=== PATIENT | female | born 1980 | race American Indian/Alaskan Native ===

== ENCOUNTER 2017-06-17 08:17 | Emergency (ER) | payer OTHER ==
[2017-06-17 08:26] VITALS: BP 125/85
--- NOTE | 2017-06-17 12:14 | Emergency Department Report ---
Entered by KINJAL JO, acting as scribe for CASE PALOMO PA. ED Rash HPI - HPI Chief Complaint: Skin Rash Stated Complaint: RASH UPPER LEFT CHEST AND BACK Time Seen by Provider: 06/17/17 09:12 Duration: 3 Days Location: Neck, Chest, Back Suspected Cause: Unknown Rash Symptoms: Yes Blistering, No Itching (painful rash), No Facial Swelling, No Tongue/Oral Swelling, No Breathing Difficulties, No Choking Sensation, No Wheezing/Dyspnea, No Peeling, No Fever, No Lightheaded, No Malaise, No Myalgias Severity: moderate Other History: 37 year old female with no significant PMHx presents to ED with c /o rash to upper left chest, neck, and back since 3 days ago. Patient states she first felt pain near her upper extremity and noticed she was breaking out. Patient describes pain as throbbing and tingling and rates pain a 7/10. Patient reports subjective fever and coughing but denies difficulties in swallowing, headache, nausea, vomiting, or chills. Patient states she had hx of chicken pox during childhood. NKDA. ED Review of Systems ROS: Stated complaint: RASH UPPER LEFT CHEST AND BACK Other details as noted in HPI Comment: All other systems reviewed and negative Constitutional: denies: chills, fever, weakness ENT: denies: throat pain, congestion Respiratory: denies: cough, shortness of breath, SOB with exertion, SOB at rest , stridor, wheezing Cardiovascular: denies: chest pain, palpitations, edema, syncope Gastrointestinal: denies: abdominal pain, nausea, vomiting, diarrhea Musculoskeletal: denies: back pain, joint swelling, arthralgia Skin: rash. denies: pruritus Neurological: denies: headache, weakness, paresthesias ED Past Medical Hx - Past Medical History Previous Medical History?: No Hx Hypertension: No Hx Congestive Heart Failure: No Hx Diabetes: No Hx Deep Vein Thrombosis: No Hx Renal Disease: No Hx Sickle Cell Disease: No Hx Seizures: No Hx Asthma: No Hx COPD: No Hx HIV: No - Surgical History Past Surgical History?: Yes Additional Surgical History: x2 - Family History Family history: hypertension - Social History Smoking Status: Current Every Day Smoker Substance Use Type: None Other Social History: Single - Medications Home Medications: Home Medications Medication Instructions Recorded Confirmed Last Taken Type Ferrous Sulfate [Feosol 325 MG tab] 325 mg PO BID #60 tablet 07/31/13 Unknown Rx HYDROcodone/APAP 5-325 [[place] 1 each PO Q6HR PRN #30 tablet 07/31/13 Unknown Rx 5/325 mg] Ibuprofen [Motrin] 600 mg PO Q6H PRN #30 tablet 07/31/13 Unknown Rx [id number]/Iron Fumarate/FA/Dss 1 each PO QDAY #30 tablet 07/31/13 Unknown Rx [ 19 Tablet] Permethrin 5% [Acticin 5% CREAM] 1 applicatio TP ONCE #60 gram 03/23/14 Unknown Rx hydrOXYzine HCL [Atarax] 25 mg PO Q6HR PRN #10 tablet 03/23/14 Unknown Rx Acetaminophen/Codeine [Tylenol 1 tab PO Q6H PRN #12 tab 06/17/17 Unknown Rx /Codeine # 3 tab] Acyclovir [Zovirax Tab] 800 mg PO Q12H #21 tab 06/17/17 Unknown Rx Rash Exam - Exam General: Vital signs noted. No distress. Alert and acting appropriately This is a 37-year-old female well-nourished well-developed in no acute distress.. Head: Normocephalic, atraumatic Neck: Supple, no C-spine tenderness, no tracheal deviation. Nontender to palpation. no adenopathy Mouth: Moist, no pharyngeal exudate or erythema. Uvula is midline and oral airway is patent HEENT: No Periorbital Edema, No Conjuctival Injection, No Chemosis, No Perioral Edema, No Tongue Edema (Tongue normal), No Uvular Edema, No Compromised Airway, No Drooling Lungs: Yes Good Air Exchange ( Non labor breathing, airway open and clear), No Wheezes, No Ronchi, No Stridor, No Cough, No Labored Respirations, No Retractions, No Use of Accessory Muscles, No Other Abnormal Lung Sounds Heart: Yes Regular (s1/s2 regular rhythm, no murmur), No Murmur Skin: Yes Tenderness ( pain before rash appears), Yes Erythema (vesicular rash and clusters to right lateral chest, AC joint area, apporx right arm, left posterior chest, and left scapula), No Urticarial Rash, No Maculopapular Rash, No Morbilliform rash, No Bulla(e), No Excoriations, No Weeping, No Edema, No Encrustations, No Other Other: Positive: Abdomen Normal, Neurologic Normal, Musculoskeletal Normal ED Course Vital Signs 06/17/17 08:23 Temperature 98.5 F Pulse Rate 82 Respiratory 20 Rate Blood Pressure 125/85 O2 Sat by Pulse 100 Oximetry - Reevaluation(s) Reevaluation #1: 06/17/17 11:59 stable throughout ED course ED Medical Decision Making - Medical Decision Making ED course: With physical findings for shingles rash. Describe rash as painful and tingly. She reports that she had pain at the sites prior to rash appearing. She is located only on the left and does not cross over the dermatome line. I discussed the patient diagnosis and treatment plan and she voiced understanding. Assessment/plan 1. Herpes zoster AKA shingles 2. Painful rash Patient discharged home with prescription for acyclovir and Motrin and instructed to practice good hand hygiene, stay away from people, children under 8 and elderly until rash dries up as these individuals immune system are low. She voiced was understanding.Does not have any medical problems and patient denies being immunocompromised. She said her last HIV test and was one year ago it was negative. Critical care attestation.: If time is entered above; I have spent that time in minutes in the direct care of this critically ill patient, excluding procedure time. ED Disposition Clinical Impression: Skin pain Shingles Qualifiers: Herpes zoster complications: without complications Qualified Code(s): B02.9 - Zoster without complications Disposition: DC-01 TO HOME OR SELFCARE Is pt being admited?: No Does the pt Need Aspirin: No Condition: Stable Instructions: Herpes Zoster (ED) Additional Instructions: keep affected area clean and dry Avoid interaction with elderly, children under 8 and individuals rash dries up. Take medication as prescribed Prescriptions: Acetaminophen/Codeine [Tylenol /Codeine # 3 tab] 1 tab PO Q6H PRN #12 tab PRN Reason: Pain Acyclovir [Zovirax Tab] 800 mg PO Q12H #21 tab Referrals: PRIMARY CARE, [Primary Care Provider] - 3-5 Days Forms: Work/School Release Form(ED) This documentation as recorded by the SANDRO padilla PEARL,accurately reflects the service I personally performed and the decisions made by ,CASE PALOMO PA.
== END 2017-06-17 12:44 | disposition home or self-care (01) ==
LOC: ED 08:17
DX: B02.9 Zoster without complications (principal); F17.210 Nicotine dependence, cigarettes, uncomplicated
CPT/HCPCS: 99282

== ENCOUNTER 2018-03-01 13:25 | Emergency (ER) | payer SELFPAY ==
[2018-03-01 13:34] VITALS: BP 136/76
--- NOTE | 2018-03-01 16:04 | Emergency Department Report ---
ED General Adult HPI - General Chief complaint: Urogenital-Female Stated complaint: RIGHT BREAST PAIN Time Seen by Provider: 03/01/18 15:55 Source: patient, family Mode of arrival: Ambulatory Limitations: No Limitations - History of Present Illness Initial comments: Patient here reports that she came to the emergency room because she's been having right breast pain for 4 years. She said her daughters for years old and she's been having the pain right after she had her daughter. Pain is 7 out of 10 comes and goes located to right breast. She reports that sometimes she has discharge from her right nipple. She said last night she became more A because the lump felt like he was a little bigger. Painful and sore to touch. Denies taking any medication. Denies any history of breast cancer. Last menstrual period was 02/02/2018 and lasted until 02/06 2018. Denies any vaginal discharge or bleeding. Denies any chest pain, heart disease any cough neck or back pain. She also reported that her right nipple at times will go inside and she has to pull it out. MD Complaint: right breast pain Onset/Timin -: year(s) Location: chest (right breast), right Radiation: non-radiation Severity scale (0 -10): 7 Quality: other (sore) Consistency: intermittent Improves with: rest Worsens with: movement, other (palpation) Associated Symptoms: other (right nipple discharge and nipple inversion intermittent.). denies: confusion, cough, diaphoresis, fever/chills, headaches , loss of appetite, malaise, nausea/vomiting, rash, seizure, shortness of breath , syncope, weakness Treatments Prior to Arrival: none - Related Data Previous Rx's Medication Instructions Recorded Last Taken Type Ferrous Sulfate [Feosol 325 MG tab] 325 mg PO BID #60 tablet 07/31/13 Unknown Rx HYDROcodone/APAP 5-325 [[place] 1 each PO Q6HR PRN #30 tablet 07/31/13 Unknown Rx 5/325 mg] Ibuprofen [Motrin] 600 mg PO Q6H PRN #30 tablet 07/31/13 Unknown Rx [id number]/Iron Fum/Folic/Docusate 1 each PO QDAY #30 tablet 07/31/13 Unknown Rx [ 19 Tablet] Permethrin 5% [Acticin 5% CREAM] 1 applicatio TP ONCE #60 gram 03/23/14 Unknown Rx hydrOXYzine HCL [Atarax] 25 mg PO Q6HR PRN #10 tablet 03/23/14 Unknown Rx Acetaminophen/Codeine [Tylenol 1 tab PO Q6H PRN #12 tab 06/17/17 Unknown Rx /Codeine # 3 tab] Acyclovir [Zovirax Tab] 800 mg PO Q12H #21 tab 06/17/17 Unknown Rx Ibuprofen [Motrin] 600 mg PO Q8H PRN #12 tablet 03/01/18 Unknown Rx Allergies Allergy/AdvReac Type Severity Reaction Status Date / Time No Known Allergies Allergy Verified 07/31/13 10:24 ED Review of Systems ROS: Stated complaint: RIGHT BREAST PAIN Other details as noted in HPI Comment: All other systems reviewed and negative Constitutional: no symptoms reported Eyes: denies: eye pain, eye discharge ENT: denies: ear pain, throat pain, hearing loss, epistaxis, congestion Respiratory: no symptoms reported Cardiovascular: other (right breast pain for sit movement and palpation, occasional right nipple discharge with nipple inversion.). denies: chest pain, palpitations, dyspnea on exertion, orthopnea, edema, syncope, paroxysmal nocturnal dyspnea Gastrointestinal: denies: abdominal pain, nausea, vomiting, diarrhea, constipation, hematemesis, melena, hematochezia Genitourinary: denies: urgency, dysuria, frequency, discharge, abnormal menses, dyspareunia Musculoskeletal: denies: back pain, arthralgia, myalgia Skin: denies: rash Neurological: denies: headache, weakness, numbness, paresthesias, confusion, abnormal gait, vertigo ED Past Medical Hx - Past Medical History Previous Medical History?: Yes Hx Hypertension: No Hx Congestive Heart Failure: No Hx Diabetes: No Hx Deep Vein Thrombosis: No Hx Renal Disease: No Hx Sickle Cell Disease: No Hx Seizures: No Hx Asthma: No Hx COPD: No Hx HIV: No - Surgical History Past Surgical History?: Yes Additional Surgical History: x2 - Family History Family history: hypertension - Social History Smoking Status: Current Every Day Smoker Substance Use Type: None - Medications Home Medications: Home Medications Medication Instructions Recorded Confirmed Last Taken Type Ferrous Sulfate [Feosol 325 MG tab] 325 mg PO BID #60 tablet 07/31/13 Unknown Rx HYDROcodone/APAP 5-325 [[place] 1 each PO Q6HR PRN #30 tablet 07/31/13 Unknown Rx 5/325 mg] Ibuprofen [Motrin] 600 mg PO Q6H PRN #30 tablet 07/31/13 Unknown Rx [id number]/Iron Fum/Folic/Docusate 1 each PO QDAY #30 tablet 07/31/13 Unknown Rx [ 19 Tablet] Permethrin 5% [Acticin 5% CREAM] 1 applicatio TP ONCE #60 gram 03/23/14 Unknown Rx hydrOXYzine HCL [Atarax] 25 mg PO Q6HR PRN #10 tablet 03/23/14 Unknown Rx Acetaminophen/Codeine [Tylenol 1 tab PO Q6H PRN #12 tab 06/17/17 Unknown Rx /Codeine # 3 tab] Acyclovir [Zovirax Tab] 800 mg PO Q12H #21 tab 06/17/17 Unknown Rx Ibuprofen [Motrin] 600 mg PO Q8H PRN #12 tablet 03/01/18 Unknown Rx ED Physical Exam - General Limitations: No Limitations General appearance: alert, in no apparent distress - Head Head exam: Present: atraumatic, normocephalic, normal inspection - Eye Eye exam: Present: normal appearance, PERRL, EOMI Pupils: Present: normal accommodation - ENT ENT exam: Present: normal exam, normal orophraynx, mucous membranes moist, TM's normal bilaterally, normal external ear exam - Neck Neck exam: Present: normal inspection, full ROM, other (no C-spine tenderness). Absent: tenderness, lymphadenopathy - Respiratory Respiratory exam: Present: normal lung sounds bilaterally, chest wall tenderness (right breast anterior. Please refer to other exam information for detail on the right breast exam.). Absent: respiratory distress, wheezes, rales , rhonchi, stridor, accessory muscle use, decreased breath sounds, prolonged expiratory - Cardiovascular Cardiovascular Exam: Present: regular rate, normal rhythm, normal heart sounds - GI/Abdominal GI/Abdominal exam: Present: soft, normal bowel sounds. Absent: distended, tenderness, guarding, rebound, rigid, organomegaly, mass, bruit, pulsatile mass , hernia - Extremities Exam Extremities exam: Present: normal inspection, full ROM, normal capillary refill , other (no clubbing, cyanosis or edema. +2 pulses to all extremities and no neurovascular compromise). Absent: tenderness, pedal edema, joint swelling, calf tenderness - Back Exam Back exam: Present: normal inspection, full ROM, other (ambulates without any difficulties). Absent: tenderness, CVA tenderness (R), CVA tenderness (L), muscle spasm, paraspinal tenderness, vertebral tenderness, rash noted - Neurological Exam Neurological exam: Present: alert, oriented X3, normal gait - Psychiatric Psychiatric exam: Present: normal affect, normal mood - Skin Skin exam: Present: warm, dry, intact, normal color. Absent: rash - Other Other exam information: Breast EXAM: Jude Breast exam breast is symmetrical and sitting position. No bulging noted. Skin has no dimpling or retraction, no edema, ulceration or erythema. No eczematous area on breasts. Nipples are symmetric without retraction. No nipple discharge or crusting. Palpated quarter size nodule to the RT left upper quadrant breast that is fixed, irregular borders, tender to palpate without any erythema. Chest wall without any crepitus or contusion. No erythema noted. Positive adenopathy rt axillary but no adenopathy to other sites to include supraclavicular, infraclavicular . Breast exam performed with patient sitting, laying supine, standing in with arms flexed on hips. Bilateral breasts breasts are pendulous. ED Course Vital Signs 03/01/18 13:30 Temperature 99 F Pulse Rate 82 Respiratory 16 Rate Blood Pressure 136/76 O2 Sat by Pulse 100 Oximetry - Reevaluation(s) Reevaluation #1: 03/01/18 17:18 Patient given Motrin 800 mg when necessary emergency room. ED Medical Decision Making - EKG Data -: EKG Interpreted by Me (attending physician) EKG shows normal: sinus rhythm Rate: normal (sinus rhythm at 80 bpm) - EKG Data Interpretation: normal EKG - Medical Decision Making ED course: Patient here reports she's been having breast pain for over 4 years. This is her first examination for breast pain. Patient found to have single solitary immobile, tender to palpate mass to right breast located at left upper quadrant. There is also positive right axillary lymph node palpation. This is suspicious for malignancy and patient will need mammogram. I discussed the patient that she needs to follow-up with [facility] or family practice at this outside [facility] and let them know that she was in the emergency room and she had mass in her right breast and was recommended to have mammogram. She will need to have full physical exam for referral for outpatient mammogram. Breast exam was done in both breasts with abnormality found in right breast. Patient also did self breast exam at home and found abnormality. Patient given Motrin 800 mg emergency room and discharged home with prescription for Motrin. She voiced understanding the discharge diagnosis, treatment plan and need to follow up to have a mammogram to rule out breast cancer. Patient is also smoker and I counseled her effects breast surgery effects of smoking on breast cancer. Critical care attestation.: If time is entered above; I have spent that time in minutes in the direct care of this critically ill patient, excluding procedure time. ED Disposition Clinical Impression: Breast mass, right, Breast pain, left, Nicotine abuse Disposition: DC-01 TO HOME OR SELFCARE Is pt being admited?: No Does the pt Need Aspirin: No Condition: Stable Instructions: Breast Self-exam (ED), Mammogram (ED), Breast Mass (ED), How to Stop Smoking (ED) Additional Instructions: Please stop smoking as this can cause breast cancer He will need to follow-up with [facility] and/or primary care physician at [facility] as discussed. Please refer to paper were given on phone number and address. Call on 03/03/2018 to schedule an appointment and let them know that you were seen in the emergency room and mammogram was recommended for abnormality in your right breast. You will definitely need to have a mammogram to check for breast cancer. You have been having the symptoms for 4 years and this is a prolonged time so time is soft and sensed and you'll need to see [facility] or primary care within the next 2-3 days to have mammogram scheduled as if you don't this will get worse if you have cancer and you could eventually end up . Take Motrin as prescribed. Prescriptions: Ibuprofen [Motrin] 600 mg PO Q8H PRN #12 tablet PRN Reason: Pain Referrals: [facility] [Outside] - 03/03/18 you will need, outpatient mammogram [Other] - JANEL (Primary care or [facility] at [facility] will refer you for outpatient mammogram after the examination you.)
--- NOTE | 2018-03-01 16:05 | Emergency Department Report ---
Blank Doc - Documentation Documentation: MSE NOTE pt has r nipple pain and fluctuance. pt states no cc of cp or sob or ruq pain ekg= nsr at 80, no stemi, normal axis and intervals, no [id number] pattern Pt has no cw tenderess or abd tenderness\ pt has non tender abdomen normal gait and speech w/o neglect, w/o weakness and w/o asymetry Pt screened, sent to providers for exam and work up
[2018-03-01] MEDS ORDERED: MOTRIN PO ONE (17:16)
== END 2018-03-01 17:48 | disposition home or self-care (01) ==
LOC: ED 13:25
DX: N63.0 Unspecified lump in unspecified breast (principal); F10.10 Alcohol abuse, uncomplicated; F17.200 Nicotine dependence, unspecified, uncomplicated
CPT/HCPCS: 93005; 93010; 99282

== ENCOUNTER 2019-09-08 15:05 | Inpatient (IN) | payer MEDICAID ==
[2019-09-08 16:07] LABS: Basophils # (Auto) 0.1 K/mm3 (0.0-0.1); Basophils % (Auto) 1.3 % (0.0-1.8); Eosinophils % (Auto) 0.4 % (0.0-4.3); Hematocrit 38.9 % (30.3-42.9); Hemoglobin 12.7 gm/dl (10.1-14.3); Lymphocytes # (Auto) 1.1 K/mm3 (1.2-5.4); Lymphocytes % (Auto) 24.1 % (13.4-35.0); Mean Corpuscular HGB Conc 33 % (30-34); Mean Corpuscular Volume 101 fl (79-97); Monocytes # (Auto) 0.5 K/mm3 (0.0-0.8); Monocytes % (Auto) 10.1 % (0.0-7.3); Platelet Count 286 K/mm3 (140-440); Red Blood Count 3.86 M/mm3 (3.65-5.03); Red Cell Distribution Width 14.9 % (13.2-15.2)
--- NOTE | 2019-09-08 16:08 | Emergency Department Report ---
HPI - General Chief Complaint: Neuro Symptoms/Deficit Time Seen by Provider: 09/08/19 15:34 - HPI HPI: Room 17 The patient is a 39-year-old female presenting with chief complaint of left- sided weakness. Patient states approximately one hour prior to arrival she had the onset of left upper extremity and left lower extremity numbness and weakness. The patient states her mouth began twisting and she cannot talk or swallow. The patient states the symptoms lasted approximately 20 minutes and then resolved. Patient denies history of headache. Patient denies previous episodes of same. Location: [See above] Duration: [See above] Quality: [See above] Severity: [See above] Timing: [See above] Context: [See above] Modifying factors: [See above] Associated signs and symptoms: [see above] ED Past Medical Hx - Surgical History Additional Surgical History: x2 - Family History Family history: no significant - Social History Smoking Status: Former Smoker (none 20 years) Substance Use Type: None (denies illicit drug use) - Medications Home Medications: Home Medications Medication Instructions Recorded Confirmed Last Taken Type Ferrous Sulfate [Feosol 325 MG tab] 325 mg PO BID #60 tablet 07/31/13 Unknown Rx HYDROcodone/APAP 5-325 [[place] 1 each PO Q6HR PRN #30 tablet 07/31/13 Unknown Rx 5/325 mg] Ibuprofen [Motrin] 600 mg PO Q6H PRN #30 tablet 07/31/13 Unknown Rx [id number]/Iron Fum/Folic/Docusate 1 each PO QDAY #30 tablet 07/31/13 Unknown Rx [ 19 Tablet] Permethrin 5% [Acticin 5% CREAM] 1 applicatio TP ONCE #60 gram 03/23/14 Unknown Rx hydrOXYzine HCL [Atarax] 25 mg PO Q6HR PRN #10 tablet 03/23/14 Unknown Rx Acetaminophen/Codeine [Tylenol 1 tab PO Q6H PRN #12 tab 06/17/17 Unknown Rx /Codeine # 3 tab] Acyclovir [Zovirax Tab] 800 mg PO Q12H #21 tab 06/17/17 Unknown Rx Ibuprofen [Motrin] 600 mg PO Q8H PRN #12 tablet 03/01/18 Unknown Rx ED Review of Systems ROS: Stated complaint: POSS STROKE Other details as noted in HPI Constitutional: no symptoms reported Eyes: denies: eye pain ENT: denies: throat pain Respiratory: no symptoms reported Cardiovascular: denies: chest pain Endocrine: no symptoms reported Gastrointestinal: denies: abdominal pain Genitourinary: denies: dysuria Musculoskeletal: denies: back pain Neurological: weakness, numbness. denies: headache Physical Exam - Physical Exam Vital Signs: Vital Signs 09/08/19 15:28 Temperature 98.4 F Pulse Rate 93 H Respiratory 18 Rate Blood Pressure 138/80 O2 Sat by Pulse 100 Oximetry Physical Exam: GENERAL: The patient is well-developed well-nourished female lying on stretcher not appearing to be in acute distress. [] HEENT: Normocephalic. Atraumatic. Extraocular motions are intact. Patient has moist mucous membranes. NECK: Supple. Trachea midline CHEST/LUNGS: Clear to auscultation. There is no respiratory distress noted. HEART/CARDIOVASCULAR: Regular. There is no tachycardia. There is no gallop rub or murmur. ABDOMEN: Abdomen is soft, nontender. Patient has normal bowel sounds. There is no abdominal distention. SKIN: There is no rash. There is no edema. There is no diaphoresis. NEURO: The patient is awake, alert, and oriented. The patient is cooperative. The patient has no focal neurologic deficits. The patient has normal speech. Cranial nerves II through XII grossly intact, no drift. Patient able to hold either leg at 30 for 5 seconds count without drifting to the bed. Normal sensation bilaterally throughout NIHSS=0 MUSCULOSKELETAL:There is no evidence of acute injury. ED Course Vital Signs 09/08/19 15:28 Temperature 98.4 F Pulse Rate 93 H Respiratory 18 Rate Blood Pressure 138/80 O2 Sat by Pulse 100 Oximetry ED Medical Decision Making - Lab Data Result diagrams: 09/08/19 15:53 09/08/19 15:53 Laboratory Tests 09/08/19 09/08/19 09/08/19 15:53 15:53 15:53 WBC 4.5 RBC 3.86 Hgb 12.7 Hct 38.9 MCV 101 H MCH 33 H MCHC 33 RDW 14.9 Plt Count 286 Lymph % (Auto) 24.1 [place] % (Auto) 10.1 H Eos % (Auto) 0.4 Baso % (Auto) 1.3 Lymph # 1.1 L [place] # 0.5 Eos # 0.0 Baso # 0.1 Seg Neutrophils % 64.1 Seg Neutrophils # 2.9 PT 14.2 INR 1.11 APTT 31.3 Thrombin Time 16.6 Sodium 136 L Potassium 3.6 Chloride 102.9 Carbon Dioxide 23 Anion Gap 14 BUN 5 L Creatinine 0.7 Estimated GFR > 60 BUN/Creatinine Ratio 7 Glucose 103 H Calcium 9.4 Total Creatine Kinase 148 H CK-MB (CK-2) 1.2 CK-MB (CK-2) Rel Index 0.8 Troponin T < 0.010 HCG, Qual 09/08/19 15:53 WBC RBC Hgb Hct MCV MCH MCHC RDW Plt Count Lymph % (Auto) [place] % (Auto) Eos % (Auto) Baso % (Auto) Lymph # [place] # Eos # Baso # Seg Neutrophils % Seg Neutrophils # PT INR APTT Thrombin Time Sodium Potassium Chloride Carbon Dioxide Anion Gap BUN Creatinine Estimated GFR BUN/Creatinine Ratio Glucose Calcium Total Creatine Kinase CK-MB (CK-2) CK-MB (CK-2) Rel Index Troponin T HCG, Qual Negative - EKG Data -: EKG Interpreted by Mi EKG shows normal: sinus rhythm Rate: normal - EKG Data When compared to previous EKG there are: previous EKG unavailable Interpretation: normal EKG - Radiology Data Radiology results: report reviewed (CT head), image reviewed (CT head) [place] [id number] Cat Scan Report Signed Patient: JAZMIN BERUMEN MR# : [id number] : 1980 Acct:[id number] Age/Sex: 39 / F ADM Date: 09/08/19 Loc: ED Attend ing Dr: Ordering Physician: MARGO POLK MD Date of Service: 09/08/19 Procedure(s): CT head/brain wo con Accession Number(s): [id number] cc: MARGO POLK MD CT BRAIN: 09/08/2019 INDICATION / CLINICAL INFORMATION: transient left-sided weakness and dysarthria. COMPARISON: None available. FINDINGS: BRAIN/I NTRACRANIAL STRUCTURES: Unenhanced CT images of the brain demonstrate no evidence of acute intracranial abnormality. Ventricles and sulci are normal in size and shape for a patient of this age. There is no evidence of acute ischemic injury, hemorrhage, or mass. There are no abnormal extra-axial fluid collections. EXTRACRANIAL STRUCTURES: Unremarkable. IMPRESSION: No significant abnormality. All CT scans at this location are performed using dose reduction to ALARA by means of automated exposure control. Signer Name: Dong Trotter MD Signed: 09/08/2019 5:52 PM Workstation Name: [id number] Transcribed By: JOAN Dictated By: Dong Trotter MD Electronically Authenticated By: Dong Trotter MD Signed Date/Time: 09/08/191751 DD/ 50 TD/TT: - Differential Diagnosis TIA, ICH, intracranial mass, CVA Critical care attestation.: If time is entered above; I have spent that time in minutes in the direct care of this critically ill patient, excluding procedure time. ED Disposition Clinical Impression: TIA (transient ischemic attack) Disposition: DC-09 OP ADMIT IP TO THIS HOSP Is pt being admited?: Yes Does the pt Need Aspirin: Yes Condition: Fair Time of Disposition: 18:10 (hospitalist paged (Dr Block))
[2019-09-08 16:31] LABS: Creatine Kinase MB 1.2 ng/mL (0.0-4.0)
[2019-09-08 16:32] LABS: BUN/Creatinine Ratio 7; Blood Urea Nitrogen 5 mg/dL (7-17); Calcium 9.4 mg/dL (8.4-10.2); Hemolysis Index 11
[2019-09-08 17:23] LABS: Partial Thromboplastin Time 31.3 Sec. (24.2-36.6)
[2019-09-08 17:27] LABS: INR 1.11 (0.87-1.13)
[2019-09-08 17:42] LABS: Thrombin Time 16.6 Sec. (15.1-19.6)
--- NOTE | 2019-09-08 17:57 | Cat Scan Report ---
CT BRAIN: 09/08/2019 INDICATION / CLINICAL INFORMATION: transient left-sided weakness and dysarthria. COMPARISON: None available. FINDINGS: BRAIN/INTRACRANIAL STRUCTURES: Unenhanced CT images of the brain demonstrate no evidence of acute int racranial abnormality. Ventricles and sulci are normal in size and shape for a patient of this age. There is no evidence of acute ischemic injury, hemorrhage, or mass. There are no abnormal extra-axial fluid collections. EXTRACRANIAL STRUCTURES: Unremarkable. IMPRESSION: No significant abnormality. All CT scans at this location are performed using dose reduction to ALARA by means of automated expos ure control. Signer Name: Dong Trotter MD Signed: 09/08/2019 5:52 PM Workstation Name: [id number]
[2019-09-08] MEDS ORDERED: ASPIRIN 325 MG TAB PO ONE (18:11)
[2019-09-08] MEDS ORDERED: ASPIRIN 325 MG TAB ONE (19:19)
--- NOTE | 2019-09-08 19:32 | History and Physical Report ---
History of Present Illness Date of examination: 09/08/19 Date of admission: 09/08/19 18:27 Chief complaint: L side numbness and L arm weakness for 20 minutes History of present illness: 39-year-old female presenting with chief complaint of left-sided weakness. Patient states approximately one hour prior to arrival she had the onset of left upper extremity and left lower extremity numbness and weakness. The patient states her mouth began twisting and she cannot talk or swallow. The patient states the symptoms lasted approximately 20 minutes and then resolved. Patient denies history of headache. Patient denies previous episodes of same. Past Medical History Anemia Surgical History Additional Surgical History: x2 Family History Family history: no significant Social History Smoking Status: Former Smoker (none 20 years) Substance Use Type: None (denies illicit drug use) - Medications Home Medications: Home Medications Medication Instructions Recorded Confirmed Last Taken Type Ferrous Sulfate [Feosol 325 MG tab] 325 mg PO BID #60 tablet 07/31/13 Unknown Rx HYDROcodone/APAP 5-325 [[place] 1 each PO Q6HR PRN #30 tablet 07/31/13 Unknown Rx 5/325 mg] Ibuprofen [Motrin] 600 mg PO Q6H PRN #30 tablet 07/31/13 Unknown Rx [id number]/Iron Fum/Folic/Docusate 1 each PO QDAY #30 tablet 07/31/13 Unknown Rx [ 19 Tablet] Permethrin 5% [Acticin 5% CREAM] 1 applicatio TP ONCE #60 gram 03/23/14 Unknown Rx hydrOXYzine HCL [Atarax] 25 mg PO Q6HR PRN #10 tablet 03/23/14 Unknown Rx Acetaminophen/Codeine [Tylenol 1 tab PO Q6H PRN #12 tab 06/17/17 Unknown Rx /Codeine # 3 tab] Acyclovir [Zovirax Tab] 800 mg PO Q12H #21 tab 06/17/17 Unknown Rx Ibuprofen [Motrin] 600 mg PO Q8H PRN #12 tablet 03/01/18 Unknown Rx Review of Systems ROS: Stated complaint: POSS STROKE Other details as noted in HPI Constitutional: no symptoms reported Eyes: denies: eye pain ENT: denies: throat pain Respiratory: no symptoms reported Cardiovascular: denies: chest pain Endocrine: no symptoms reported Gastrointestinal: denies: abdominal pain Genitourinary: denies: dysuria Musculoskeletal: denies: back pain Neurological: weakness, numbness. denies: headache Medications and Allergies Allergies Allergy/AdvReac Type Severity Reaction Status Date / Time No Known Allergies Allergy Verified 07/31/13 10:24 Home Medications Medication Instructions Recorded Confirmed Last Taken Type No Known Home Medications [No 09/08/19 09/08/19 Unknown History Reported Home Medications] Exam - Constitutional Vitals: Temp Pulse Resp BP Pulse Ox 98.3 F 94 H 13 152/83 100 09/08/19 18:21 09/08/19 18:21 09/08/19 18:21 09/08/19 18:21 09/08/19 15:28 General appearance: Present: no acute distress, well-nourished - EENT Eyes: Present: PERRL ENT: hearing intact, clear oral mucosa - Neck Neck: Present: supple, normal ROM - Respiratory Respiratory effort: normal Respiratory: bilateral: CTA - Cardiovascular Heart rate: 78 Rhythm: regular Heart Sounds: Present: S1 & S2. Absent: rub, click - Extremities Extremities: no ischemia, pulses symmetrical, No edema Peripheral Pulses: within normal limits - Abdominal General gastrointestinal: Present: soft, non-tender, non-distended, normal bowel sounds Female genitourinary: Present: normal - Rectal Rectal Exam: deferred - Integumentary Integumentary: Present: clear, warm, dry - Musculoskeletal Musculoskeletal: gait normal, strength equal bilaterally - Psychiatric Psychiatric: appropriate mood/affect, intact judgment & insight - Neurologic Neurologic: CNII-XII intact, moves all extremities - Allied Health Allied health notes reviewed: nursing, case management Results - Labs CBC & Chem 7: 09/08/19 15:53 09/08/19 15:53 Labs: Laboratory Last Values WBC 4.5 K/mm3 (4.5-11.0) 09/08/19 15:53 RBC 3.86 M/mm3 (3.65-5.03) 09/08/19 15:53 Hgb 12.7 gm/dl (10.1-14.3) 09/08/19 15:53 Hct 38.9 % (30.3-42.9) 09/08/19 15:53 MCV 101 fl (79-97) H 09/08/19 15:53 MCH 33 pg (28-32) H 09/08/19 15:53 MCHC 33 % (30-34) 09/08/19 15:53 RDW 14.9 % (13.2-15.2) 09/08/19 15:53 Plt Count 286 K/mm3 (140-440) 09/08/19 15:53 Lymph % (Auto) 24.1 % (13.4-35.0) 09/08/19 15:53 [place] % (Auto) 10.1 % (0.0-7.3) H 09/08/19 15:53 Eos % (Auto) 0.4 % (0.0-4.3) 09/08/19 15:53 Baso % (Auto) 1.3 % (0.0-1.8) 09/08/19 15:53 Lymph # 1.1 K/mm3 (1.2-5.4) L 09/08/19 15:53 [place] # 0.5 K/mm3 (0.0-0.8) 09/08/19 15:53 Eos # 0.0 K/mm3 (0.0-0.4) 09/08/19 15:53 Baso # 0.1 K/mm3 (0.0-0.1) 09/08/19 15:53 Seg Neutrophils % 64.1 % (40.0-70.0) 09/08/19 15:53 Seg Neutrophils # 2.9 K/mm3 (1.8-7.7) 09/08/19 15:53 PT 14.2 Sec. (12.2-14.9) 09/08/19 15:53 INR 1.11 (0.87-1.13) 09/08/19 15:53 APTT 31.3 Sec. (24.2-36.6) 09/08/19 15:53 Thrombin Time 16.6 Sec. (15.1-19.6) 09/08/19 15:53 Sodium 136 mmol/L (137-145) L 09/08/19 15:53 Potassium 3.6 mmol/L (3.6-5.0) 09/08/19 15:53 Chloride 102.9 mmol/L (98-107) 09/08/19 15:53 Carbon Dioxide 23 mmol/L (22-30) 09/08/19 15:53 Anion Gap 14 mmol/L 09/08/19 15:53 BUN 5 mg/dL (7-17) L 09/08/19 15:53 Creatinine 0.7 mg/dL (0.7-1.2) 09/08/19 15:53 Estimated GFR > 60 ml/min 09/08/19 15:53 BUN/Creatinine Ratio 7 % 09/08/19 15:53 Glucose 103 mg/dL (65-100) H 09/08/19 15:53 Calcium 9.4 mg/dL (8.4-10.2) 09/08/19 15:53 Total Creatine Kinase 148 units/L (30-135) H 09/08/19 15:53 CK-MB (CK-2) 1.2 ng/mL (0.0-4.0) 09/08/19 15:53 CK-MB (CK-2) Rel Index 0.8 (0-4) 09/08/19 15:53 Troponin T < 0.010 ng/mL (0.00-0.029) 09/08/19 15:53 HCG, Qual Negative (Negative) 09/08/19 15:53 - Imaging and Cardiology EKG: report reviewed (NSR No acute ST T WAVE Changes) CT Scan - head: report reviewed (NAF) Assessment and Plan Advance Directives: Yes (Full code) VTE prophylaxis?: Chemical Plan of care discussed with patient/family: Yes - Patient Problems (1) TIA (transient ischemic attack) Current Visit: Yes Status: Acute Plan to address problem: TIA w/u MRI Brain and CDS ordered ECHO ordered NEURO consult (2) DVT prophylaxis Current Visit: Yes Status: Acute Plan to address problem: On Lovenox and GI prophylaxis
[2019-09-09] MEDS ORDERED: HYDROmorphone 1 MG/1 ML INJ IV PRN (07:40)
[2019-09-09] MEDS ORDERED: ACETAMINOPHEN 325 MG TAB PO PRN (07:40)
[2019-09-09] MEDS ORDERED: oxyCODONE /ACETAMINOPHEN 5-325MG TAB PO PRN (07:40)
[2019-09-09] MEDS ORDERED: ONDANSETRON 4 MG/2 ML INJ IV PRN (07:40)
[2019-09-09] MEDS ORDERED: SODIUM CHLORIDE 0.9% 1000 ML 1,000 ML IV SCH (08:00)
[2019-09-09 08:26] LABS: BUN/Creatinine Ratio 7; Blood Urea Nitrogen 4 mg/dL (7-17); Calcium 8.8 mg/dL (8.4-10.2); Hemolysis Index 1
[2019-09-09 08:35] LABS: Basophils % (Auto) 0.9 % (0.0-1.8); Eosinophils % (Auto) 0.5 % (0.0-4.3); Hematocrit 37.4 % (30.3-42.9); Hemoglobin 12.3 gm/dl (10.1-14.3); Lymphocytes # (Auto) 1.3 K/mm3 (1.2-5.4); Lymphocytes % (Auto) 32.4 % (13.4-35.0); Mean Corpuscular HGB Conc 33 % (30-34); Mean Corpuscular Volume 99 fl (79-97); Monocytes # (Auto) 0.4 K/mm3 (0.0-0.8); Monocytes % (Auto) 9.3 % (0.0-7.3); Platelet Count 292 K/mm3 (140-440); Red Blood Count 3.78 M/mm3 (3.65-5.03); Red Cell Distribution Width 14.6 % (13.2-15.2)
[2019-09-09] MEDS: FAMOTIDINE 20 MG TAB PO SCH ×2 (10:00→21:29)
--- NOTE | 2019-09-09 13:04 | Vascular Lab Report ---
"DUPLEX DOPPLER ULTRASOUND CAROTID, BILATERAL INDICATION: tia. FINDINGS: RIGHT CAROTID: No significant atherosclerotic plaque. Right CCA velocity: 134 cm/sec. Right ICA peak systolic velocity: 106 cm/sec. ICA/CCA PSV Ratio: 1.0. Right Vertebral Artery: Antegrade flow. LEFT CAROTID: No significant atherosclerotic plaque. Left CCA velocity: 131 cm/sec. Left ICA peak systolic velocity: 116 cm/sec. ICA/CCA PSV Ratio: 1.1. Left Vertebral Artery: Antegrade flow. IMPRESSION: 1. Right Internal Carotid Artery: Less than 50% diameter stenosis. 2. Left Internal Carotid Artery: Less than 50% diameter stenosis. Velocity criteria are extrapolated from diameter data as defined by the Society of Radiologists in Ul trasound Consensus Conference, Radiology 2003; 229;340-346. Degree of Stenosis (%) || ICA PSV (cm/sec) || Plaque estimate (%) || ICA/CCA PSV Ratio Normal <125 None <2.0 <50 <125 <50 <2.0 50-69 125-230 50 2.0-4.0 70 but less than 100 >230 50 >4.0 Near occlusion High, low, or none visible variable Total occlusion None visible; no lumen N/A Signer Name: Cale Turpin MD Signed: 09/09/2019 1:00 PM Workstation Name: [email or web address]"
--- NOTE | 2019-09-09 13:31 | Magnetic Resonance Report ---
MRI BRAIN WITHOUT CONTRAST INDICATION / CLINICAL INFORMATION: L arm numbness. Stroke. Slurred speech. TECHNIQUE: Multisequence, multiplanar images were obtained. COMPARISON: None available. FINDINGS: CEREBRAL and CEREBELLAR HEMISPHERES: No evidence of mass or mass effect. No midline shift. No acute hemorrhage. No diffusion restriction to suggest acute infarct. No extra-axial fluid collection. VENTRICLES: Normal in size and configuration for age. VISUALIZED ORBITS: No significant abnormality. VISUALIZED PARANASAL SINUSES: No significant abnormality. ADDITIONAL FINDINGS: None. IMPRESSION: Unremarkable MR brain without contrast. No evidence for CVA, hemorrhage or mass. Signer Name: Jr Jasmine Jr, MD Signed: 09/09/2019 1:27 PM Workstation Name: [id number]
--- NOTE | 2019-09-09 15:30 | Progress Note ---
Assessment and Plan Assessment and plan: CVA versus conversion disorder - CT, MRI head was negative for acute intracranial findings - Carotid Doppler less than 50% stenosis - Echo reading pending - Neurology consulted - Patient is on aspirin and statin, will check lipid panel - PT evaluation DVT prophylaxis - Lovenox Disposition - Continue inpatient care History Interval history: Patient is seen and evaluated this morning, patient is still complaining left- sided weakness. Hospitalist Physical - Physical exam Narrative exam: Not in cardiopulmonary distress. The patient is obese. Vital signs as documented. Head exam is unremarkable. No scleral icterus . Neck is without jugular venous distension, thyromegaly, or carotid bruits. Lungs are clear to auscultation. Cardiac exam reveals regular rate and Rhythm. Abdominal exam reveals normal bowel sounds, no masses, no organomegaly and no aortic enlargement. Extremities are nonedematous and both femoral and pedal pulses are normal. [employer]: Alert and oriented 3. Mild Left sided weakness. - Constitutional Vitals: Temp Pulse Resp BP Pulse Ox 97.8 F 80 18 112/65 100 09/09/19 03:57 09/09/19 12:00 09/09/19 09:38 09/09/19 03:57 09/09/19 03:57 General appearance: Present: no acute distress, well-nourished Results - Labs CBC & Chem 7: 09/09/19 07:52 09/09/19 07:52 Labs: Laboratory Last Values WBC 4.1 K/mm3 (4.5-11.0) L 09/09/19 07:52 RBC 3.78 M/mm3 (3.65-5.03) 09/09/19 07:52 Hgb 12.3 gm/dl (10.1-14.3) 09/09/19 07:52 Hct 37.4 % (30.3-42.9) 09/09/19 07:52 MCV 99 fl (79-97) H 09/09/19 07:52 MCH 33 pg (28-32) H 09/09/19 07:52 MCHC 33 % (30-34) 09/09/19 07:52 RDW 14.6 % (13.2-15.2) 09/09/19 07:52 Plt Count 292 K/mm3 (140-440) 09/09/19 07:52 Lymph % (Auto) 32.4 % (13.4-35.0) 09/09/19 07:52 [place] % (Auto) 9.3 % (0.0-7.3) H 09/09/19 07:52 Eos % (Auto) 0.5 % (0.0-4.3) 09/09/19 07:52 Baso % (Auto) 0.9 % (0.0-1.8) 09/09/19 07:52 Lymph # 1.3 K/mm3 (1.2-5.4) 09/09/19 07:52 [place] # 0.4 K/mm3 (0.0-0.8) 09/09/19 07:52 Eos # 0.0 K/mm3 (0.0-0.4) 09/09/19 07:52 Baso # 0.0 K/mm3 (0.0-0.1) 09/09/19 07:52 Seg Neutrophils % 56.9 % (40.0-70.0) 09/09/19 07:52 Seg Neutrophils # 2.3 K/mm3 (1.8-7.7) 09/09/19 07:52 PT 14.2 Sec. (12.2-14.9) 09/08/19 15:53 INR 1.11 (0.87-1.13) 09/08/19 15:53 APTT 31.3 Sec. (24.2-36.6) 09/08/19 15:53 Thrombin Time 16.6 Sec. (15.1-19.6) 09/08/19 15:53 Sodium 141 mmol/L (137-145) 09/09/19 07:52 Potassium 3.8 mmol/L (3.6-5.0) 09/09/19 07:52 Chloride 104.9 mmol/L (98-107) 09/09/19 07:52 Carbon Dioxide 24 mmol/L (22-30) 09/09/19 07:52 Anion Gap 16 mmol/L 09/09/19 07:52 BUN 4 mg/dL (7-17) L 09/09/19 07:52 Creatinine 0.6 mg/dL (0.7-1.2) L 09/09/19 07:52 Estimated GFR > 60 ml/min 09/09/19 07:52 BUN/Creatinine Ratio 7 % 09/09/19 07:52 Glucose 93 mg/dL (65-100) 09/09/19 07:52 Hemoglobin A1c 5.0 % (4-6) 09/09/19 07:52 Calcium 8.8 mg/dL (8.4-10.2) 09/09/19 07:52 Total Creatine Kinase 148 units/L (30-135) H 09/08/19 15:53 CK-MB (CK-2) 1.2 ng/mL (0.0-4.0) 09/08/19 15:53 CK-MB (CK-2) Rel Index 0.8 (0-4) 09/08/19 15:53 Troponin T < 0.010 ng/mL (0.00-0.029) 09/08/19 15:53 HCG, Qual Negative (Negative) 09/08/19 15:53 Active Medications - Current Medications Current Medications: Generic Name Dose Route Start Last Admin Trade Name Freq PRN Reason Stop Dose Admin Acetaminophen 650 mg 09/09/19 07:40 Tylenol PO Q4H PRN Pain MILD(1-3)/Fever >100.5/BUSBY Atorvastatin Calcium 40 mg 09/09/19 22:00 Lipitor PO QHS [facility] Famotidine 20 mg 09/09/19 10:00 Pepcid PO BID KAVON Sodium Chloride 1,000 mls @ 42 mls/hr 09/09/19 08:00 09/09/19 08:53 Nacl 0.9% 1000 Ml IV 42 mls/hr DIRECT KAVON Administration Ondansetron HCl 4 mg 09/09/19 07:40 Zofran IV Q8H PRN Nausea And Vomiting Oxycodone/Acetaminophen 1 tab 09/09/19 07:40 09/09/19 08:38 Percocet 5/325 PO 1 tab Q6H PRN Administration Pain, Moderate (4-6) Sodium Chloride 10 ml 09/09/19 10:00 Sodium Chloride Flush Syringe 10 Ml IV BID KAVON Sodium Chloride 10 ml 09/09/19 07:40 Sodium Chloride Flush Syringe 10 Ml IV PRN PRN LINE FLUSH
[2019-09-09 18:10] LABS: Chol/HDL Ratio 3.09 %
--- NOTE | 2019-09-09 18:10 | Consultation ---
History of Present Illness Consult date: 09/09/19 Reason for Consult: TIA Chief complaint: left sided weakness/numbness History of present illness: Patient is a 39 y/o woman w/ no significant past medical history. He was in her usual state of health until around 12pm yesterday, when she suddenly developed weakness and numbness of LUE/LLE, as well left facial weakness. Symptoms lasted about 20-30 minutes before resolving. Patient states that she has not had any similar episodes in the past. She does endorse that she is under a significant amount of emotional stress currently due to not having a job, as she lost her job recently. Past History Past Medical History: No medical history Social history: lives with family Family history: no significant family history Medications and Allergies Allergies Allergy/AdvReac Type Severity Reaction Status Date / Time No Known Allergies Allergy Verified 07/31/13 10:24 Home Medications Medication Instructions Recorded Confirmed Last Taken Type No Known Home Medications [No 09/08/19 09/08/19 Unknown History Reported Home Medications] Active Meds: Active Medications Acetaminophen (Tylenol) 650 mg PO Q4H PRN PRN Reason: Pain MILD(1-3)/Fever >100.5/BUSBY Atorvastatin Calcium (Lipitor) [address] [facility] Enoxaparin Sodium (Enoxaparin) 40 mg SUB-Q QDAY@2200 [facility] Famotidine (Pepcid) [address] [facility] Last Admin: 09/09/19 10:00 Dose: 20 mg Documented by: Sodium Chloride (Nacl 0.9% 1000 Ml) 1,000 mls @ 42 mls/hr IV DIRECT [facility] Last Admin: 09/09/19 08:53 Dose: 42 mls/hr Documented by: Ondansetron HCl (Zofran) 4 mg IV Q8H PRN PRN Reason: Nausea And Vomiting Oxycodone/Acetaminophen (Percocet 5/325) 1 tab PO Q6H PRN PRN Reason: Pain, Moderate (4-6) Last Admin: 09/09/19 08:38 Dose: 1 tab Documented by: Sodium Chloride (Sodium Chloride Flush Syringe 10 Ml) [address] [facility] Last Admin: 09/09/19 10:00 Dose: 10 ml Documented by: Sodium Chloride (Sodium Chloride Flush Syringe 10 Ml) 10 ml IV PRN PRN PRN Reason: LINE FLUSH Review of Systems All systems: negative Neurological: weakness, numbness Physical Examination - Vital Signs Vital Signs: Vital Signs Temp Pulse Resp BP Pulse Ox 98.4 F 93 H 18 138/80 100 09/08/19 15:28 09/08/19 15:28 09/08/19 15:28 09/08/19 15:28 09/08/19 15:28 - Physical Exam Narrative exam: Patient is awake, alert, oriented x4, follows complex commands. PERRL, EOMI, VFF, tongue midline, no facial weakness noted, b/l intact to LT. No dysarthria or aphasia noted. 5/5 strength in all extremities. 2+ reflexes throughout. B/l intact to FTN. B/l intact to LT. - Constitutional General appearance: comfortable - EENT EENT: Present: ATNC, PERRL, mucous membranes moist, hearing intact, vision intact - Respiratory Respiratory: Present: lungs clear, normal breath sounds - Cardiovascular Cardiovascular: Present: regular rate, normal S1, normal S2 Extremities: Present: no peripheral edema bilatateraly, no clubbing, cyanosis, no inflammation - Gastrointestinal Gastrointestinal: Present: normoactive bowel sounds, soft, non-tender - Integumentary Integumentary: Present: normal - Musculoskeletal Musculoskeletal: Present: no pain, normal range of motion - Psychiatric Psychiatric: Present: mood/affect appropriate - Level of Consciousness 1a. Level of Consciousness: alert/keenly responsive - LOC Questions 1b. LOC Questions: answers both correctly - LOC Command 1c. LOC Commands: performs tasks correctly - Best Gaze 2. Best Gaze: normal - Visual 3. Visual: no visual loss - Facial Palsy 4. Facial Palsy: normal symmetrical movement - Motor Arm 5a. Motor Arm Left: no drift 5b. Motor Arm Right: no drift - Motor Leg 6a. Motor Leg Left: no drift 6b. Motor Leg Right: no drift - Limb Ataxia 7. Limb Ataxia: absent - Sensory 8. Sensory: normal - Best Language 9. Best Language: no aphasia - Dysarthria 10. Dysarthria: normal - Extinction and Inattention 11. Extinction/Inattention: no abnormality - Scoring Total Score: 0 Stroke Severity: No Stroke Symptoms Results - Laboratory Findings CBC and BMP: 09/09/19 07:52 09/09/19 07:52 Abnormal Lab Findings: Abnormal Labs 09/08/19 09/08/19 09/09/19 15:53 15:53 07:52 WBC 4.1 L MCV 101 H 99 H MCH 33 H 33 H Jenkins % (Auto) 10.1 H 9.3 H Lymph # 1.1 L Sodium 136 L BUN 5 L Creatinine Glucose 103 H Total Creatine Kinase 148 H 09/09/19 07:52 WBC MCV MCH Jenkins % (Auto) Lymph # Sodium BUN 4 L Creatinine 0.6 L Glucose Total Creatine Kinase Assessment and Plan Patient is a 39 y/o woman w/ no significant PMH who p/w left UE/LE numbness and weakness which lasted about 20 minutes prior to resolving. According to the patient's clinical findings, it is likely that she has had a TIA. Alternatively, she may have conversion d/o, as she states she has been under significant stress recently. Plan: 1. TIA vs. conversion d/o: - CT head unremarkable - MRI brain unremarkable - MRA head: no significant stenosis - Echo: EF 55-60%, LA size normal - CUS: no significant stenosis - Cont. ASA - Cont. statin. LDL 107, goal LDL <70. - Telemetry monitoring while in house - PT/OT/ST not indicated, as patient's symptoms have resolved - DVT Ppx: recommend lovenox - Recommend psychiatry consult, and for patient to follow up outpatient with psychiatry. - Check UDS 2. Blood pressure: - Recommend goal of normotension, as no evidence of stroke on MRI - Will monitor patient. Thank you for allowing me to take part in the care of this patient. Colin Colunga MD Neurology
--- NOTE | 2019-09-09 18:48 | Magnetic Resonance Report ---
MRA brain without contrast CLINICAL HISTORY: Transient ischemic attack, left-sided weakness FINDINGS: No previous exams are available for comparison. The motion degrades the image quality. Sommer bryanna, the intracranial vessels appear to demonstrate appropriate caliber without significant focal charlie nosis by NASCET criteria. There is no MRA evidence of intracranial aneurysm. IMPRESSION: The MRA of the head is unremarkable. Signer Name: Carlos Manuel Almaguer MD Signed: 09/09/2019 6:43 PM Workstation Name: [id number]
[2019-09-09] MEDS ORDERED: ENOXAPARIN 40 MG/0.4 ML INJ SUB-Q SCH (22:00)
[2019-09-10 04:56] LABS: Amphetamine Screen,Urine PRESUMPTIVE NEGATIVE; Benzodiazepines Screen,Urine PRESUMPTIVE NEGATIVE; Cannabinoid Screen,Urine PRESUMPTIVE NEGATIVE; Cocaine Screen,Urine PRESUMPTIVE NEGATIVE; Methadone Screen,Urine PRESUMPTIVE NEGATIVE; Opiate Screen,Urine PRESUMPTIVE NEGATIVE
[2019-09-10 07:26] VITALS: BP 117/70
--- NOTE | 2019-09-10 08:35 | Discharge Summary ---
Providers - Providers Date of Admission: 09/08/19 18:27 Date of discharge: 09/10/19 Attending physician: ISABEL JACKMAN MD 09/09/19 07:40 Consult to Physician [CONS] Routine Comment: Consulting Provider: MARY JACOBS Physician Instructions: Reason For Exam: TIA 09/09/19 15:20 Physical Therapy Evaluation and Treat [CONS] Routine Comment: Reason For Exam: left sided weakness 09/10/19 07:39 Consult to Mental Health [CONS] Routine (Cancelled) Reason For Exam: conversion disorder Place consult to:: mental health Notified:: Marleni MONTEJO Phone number called:: [phone]. 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 Patient states approximately one hour prior to arrival she had the onset of left upper extremity and left lower extremity numbness and weakness. The patient states her mouth began twisting and she cannot talk or swallow. The patient states the symptoms lasted approximately 20 minutes and then resolved. Patient denies history of headache. Patient denies previous episodes of same. Patient was admitted to the floor and CVA workup was done, and unremarkable. Neurology was consulted and stated TIA versus conversion disorder. Symptoms resolved. Patient was hemodynamically stable. Patient was advised to follow-up with psychiatry as an outpatient which she declined. Patient discharged home. Disposition: - TO HOME OR SELFCARE Time spent for discharge: 32 minutes - Discharge Diagnoses (1) Conversion disorder Status: Acute (2) TIA (transient ischemic attack) Status: Acute Core Measure Documentation - Palliative Care Palliative Care/ Comfort Measures: Not Applicable - Core Measures Any of the following diagnoses?: none Exam - Physical Exam Narrative exam: Not in cardiopulmonary distress. The patient is obese. Vital signs as documented. Head exam is unremarkable. No scleral icterus . Neck is without jugular venous distension, thyromegaly, or carotid bruits. Lungs are clear to auscultation. Cardiac exam reveals regular rate and Rhythm. Abdominal exam reveals normal bowel sounds, no masses, no organomegaly and no aortic enlargement. Extremities are nonedematous and both femoral and pedal pulses are normal. [employer] INST[employer]ER: Alert and oriented 3. No focal weakness. - Constitutional Vitals: Temp Pulse Resp BP Pulse Ox 98.7 F 87 18 117/70 100 09/10/19 07:21 09/10/19 07:21 09/10/19 07:21 09/10/19 07:21 09/10/19 07:21 Plan Activity: no restrictions Weight Bearing Status: Full Weight Bearing Diet: regular Care Plan Goals: Patient advised to have f/u at [facility] which the patient declined. Follow up with: NAVNEET FOY MD [Primary Care Provider] - 7 Days DEBORAH BOOKER MD [Staff Physician] - 7 Days Prescriptions: AtorvaSTATin [Lipitor] 40 mg PO QHS #30 tablet Aspirin EC [Halfprin EC] 81 mg PO QDAY #30 tablet
[2019-09-10] MEDS ORDERED: ASPIRIN EC 81 MG TAB PO SCH (10:00)
[2019-09-10] MEDS: FAMOTIDINE 20 MG TAB PO SCH (10:06)
--- NOTE | 2019-09-10 11:29 | Progress Note ---
Assessment and Plan Patient is a 39 y/o woman w/ no significant PMH who p/w left UE/LE numbness and weakness which lasted about 20 minutes prior to resolving. According to the patient's clinical findings, it is likely that she has had a TIA. Alternatively, she may have conversion d/o, as she states she has been under significant stress recently. Plan: 1. TIA vs. conversion d/o: - CT head unremarkable - MRI brain unremarkable - MRA head: no significant stenosis - Echo: EF 55-60%, LA size normal - CUS: no significant stenosis - Cont. ASA - Cont. statin. LDL 107, goal LDL <70. - Telemetry monitoring while in house - PT/OT/ST not indicated, as patient's symptoms have resolved - DVT Ppx: recommend lovenox - Recommend psychiatry consult, and for patient to follow up outpatient with psychiatry. - Recommend f/u outpatient with neurology in 3-4 weeks. - UDS: negative. 2. Blood pressure: - Recommend goal of normotension, as no evidence of stroke on MRI - Will sign off. Please call with any questions. Thank you for allowing me to take part in the care of this patient. Colin Colunga MD Neurology Subjective Date of service: 09/10/19 Principal diagnosis: TIA Interval history: No acute events overnight. Objective - Exam Narrative Exam: Patient is awake, alert, oriented x4, follows complex commands. PERRL, EOMI, VFF, tongue midline, no facial weakness noted, b/l intact to LT. No dysarthria or aphasia noted. 5/5 strength in all extremities. 2+ reflexes throughout. B/l intact to FTN. B/l intact to LT. - Vital Sign Vital Signs - 12hr 09/09/19 09/10/19 09/10/19 23:54 04:29 05:03 Temperature 98.0 F 98.0 F Pulse Rate 94 H 94 H 98 H Respiratory 18 18 Rate Blood Pressure 100/60 109/68 O2 Sat by Pulse 98 95 Oximetry 09/10/19 07:21 Temperature 98.7 F Pulse Rate 87 Respiratory 18 Rate Blood Pressure 117/70 O2 Sat by Pulse 100 Oximetry - General Apperance Constitutional: comfortable - EENT EENT: ATNC, PERRL, mucous membranes moist, hearing intact, vision intact - Respiratory Respiratory: lungs clear, normal breath sounds - Cardiovascular Cardiovascular: regular rate, normal S1, normal S2 Extremities: no clubbing, cyanosis, no inflammation - Gastrointestinal Gastrointestinal: normoactive bowel sounds, soft, non-tender - Integumentary Integumentary: normal - Musculoskeletal Musculoskeletal: no fluid collection, no pain - Psychiatric Psychiatric: mood/affect appropriate - Laboratory Findings CBC and BMP: 09/09/19 07:52 09/09/19 07:52 Abnormal Lab Findings: Abnormal Labs 09/08/19 09/08/19 09/09/19 15:53 15:53 07:52 WBC 4.1 L MCV 101 H 99 H MCH 33 H 33 H Cowley % (Auto) 10.1 H 9.3 H Lymph # 1.1 L Sodium 136 L BUN 5 L Creatinine Glucose 103 H Total Creatine Kinase 148 H 09/09/19 07:52 WBC MCV MCH Cowley % (Auto) Lymph # Sodium BUN 4 L Creatinine 0.6 L Glucose Total Creatine Kinase
== END 2019-09-10 11:36 | disposition home or self-care (01) | DRG 69 ==
LOC: ED 15:05 → 4A 18:27
PROVIDERS: ADMIT Internal Medicine; ATTEND Internal Medicine
DX: G45.9 Transient cerebral ischemic attack, unspecified (principal); F44.4 Conversion disorder with motor symptom or deficit; Z79.899 Other long term (current) drug therapy
CPT/HCPCS: 36415; 70450; 70544; 70551; 80048; 80061; 80307; 82550; 82553; 83036; 84484; 84703; 85025; 85610; 85670; 85730; 93005; 93010; 93306; 93880; 96374; G0378; A9270-GY; J1650; J2405; J7030